=== PATIENT | male | born 1935 | race Caucasian/White ===

== ENCOUNTER 2017-03-20 10:33 | Inpatient (IN) | payer OTHER ==
[~2017-03-20] VITALS: Ht 175.3 cm; Wt 92.2 kg
[2017-03-20 10:50] VITALS: Ht 175.3 cm; Wt 92.2 kg
[2017-03-20 12:40] LABS: CARBON DIOXIDE 26.1 mmol/L (21-32); CHLORIDE SERUM 100 mmol/L (98-107); CREATININE SERUM 0.9 mg/dL (0.7-1.3); GLUCOSE SERUM 171 mg/dL (74-106); POTASSIUM SERUM 3.5 mmol/L (3.5-5.1); SODIUM SERUM 134 mmol/L (136-145)
[2017-03-20 12:50] LABS: RED CELL DISTRIBUTION WIDTH 14.8 % (11.5-14.5)
[2017-03-20 12:51] LABS: ALKALINE PHOSPHATASE 54 U/L (46-116); ALT/SGPT 30 U/L (16-63); AST/SGOT 35 U/L (15-37); BASOPHIL % 0.1 % (0-2); BILIRUBIN TOTAL 0.41 mg/dL (0.20-1.00); PLATELET COUNT 136 x10^3mcL (130-400)
[2017-03-20 12:53] LABS: ALBUMIN 3.1 g/dL (3.4-5.0); TOTAL PROTEIN, SERUM 8.9 g/dL (6.4-8.2)
[2017-03-20 13:04] LABS: T3 TOTAL 0.88 ng/mL
[2017-03-20 13:12] LABS: ERYTHROCYTE SED RATE 90 mm/hr (0-20)
[2017-03-20] MEDS ORDERED: ALLOPURINOL100 MG PO (13:19)
[2017-03-20] MEDS ORDERED: NOR5 PO (13:19)
[2017-03-20] MEDS ORDERED: DITROPAN XL15 MG PO (13:19)
[2017-03-20] MEDS ORDERED: FLOMAX0.4 MG PO (13:20)
[2017-03-20] MEDS ORDERED: COUMADIN5 MG PO (13:20)
[2017-03-20] MEDS ORDERED: FERROUS SULFAT325 M2 PO (13:21)
[2017-03-20] MEDS ORDERED: SIMVASTATIN10 M1 PO (13:21)
[2017-03-20 13:40] LABS: CK-MB 1.5 ng/mL (0-3.6); FREE T4 1.45 ng/dL (0.76-1.46); FREE THYROXINE INDEX 2.6 ug/dL (1.4-4.5); T4(THYROXINE) 7.5 ug/dL (4.7-13.3)
[2017-03-20 14:11] LABS: MAGNESIUM 2.1 mg/dL (1.8-2.4)
[2017-03-20 14:12] LABS: CHOLESTEROL/HDL RATIO 1.4
[2017-03-20 16:19] VITALS: BP 120/60
[2017-03-20 18:01] VITALS: BP 150/70
[2017-03-20 18:47] LABS: UA SPECIFIC GRAVITY >=1.030 (1.005-1.035); microscopic required? YES; urine erythrocyte TRACE (NEGATIVE)
[2017-03-20 18:59] LABS: AMPHETAMINE QUAL UR NONE DETECTED (NEG <=1000)
[2017-03-20 19:40] VITALS: BP 120/72; BP 131/63
[2017-03-21 06:07] VITALS: BP 130/67
[2017-03-21 07:23] LABS: CALCIUM 7.8 mg/dL (8.5-10.1); CARBON DIOXIDE 27.2 mmol/L (21-32); CHLORIDE SERUM 99 mmol/L (98-107); CREATININE SERUM 0.8 mg/dL (0.7-1.3); GLUCOSE SERUM 110 mg/dL (74-106); MAGNESIUM 2.3 mg/dL (1.8-2.4); PHOSPHOROUS 3.4 mg/dL (2.5-4.9); POTASSIUM SERUM 3.7 mmol/L (3.5-5.1); SODIUM SERUM 135 mmol/L (136-145)
[2017-03-21 07:36] LABS: BASOPHIL % 1.6 % (0-2); RED CELL DISTRIBUTION WIDTH 14.1 % (11.5-14.5)
[2017-03-21 07:37] LABS: PLATELET COUNT 127 x10^3mcL (130-400)
[2017-03-21 10:05] VITALS: BP 150/72
[2017-03-21 15:09] VITALS: BP 143/70
[2017-03-21 17:00] VITALS: BP 120/62
[2017-03-21 18:00] VITALS: BP 149/73
[2017-03-21 20:54] VITALS: BP 144/66
[2017-03-22 05:45] VITALS: BP 139/74
[2017-03-22 07:13] LABS: CALCIUM 8.3 mg/dL (8.5-10.1); CARBON DIOXIDE 26.5 mmol/L (21-32); CHLORIDE SERUM 98 mmol/L (98-107); CREATININE SERUM 0.7 mg/dL (0.7-1.3); GLUCOSE SERUM 149 mg/dL (74-106); MAGNESIUM 2.3 mg/dL (1.8-2.4); PHOSPHOROUS 3.8 mg/dL (2.5-4.9); POTASSIUM SERUM 3.7 mmol/L (3.5-5.1); SODIUM SERUM 136 mmol/L (136-145)
[2017-03-22 07:19] LABS: BASOPHIL % 0.2 % (0-2); PLATELET COUNT 131 x10^3mcL (130-400); RED CELL DISTRIBUTION WIDTH 14.4 % (11.5-14.5)
[2017-03-22 09:15] VITALS: BP 105/63
[2017-03-22 13:30] VITALS: BP 123/75
[2017-03-22 17:44] VITALS: BP 174/75
[2017-03-22 19:00] VITALS: BP 157/78
[2017-03-22 21:50] VITALS: BP 151/78
[2017-03-23 05:16] VITALS: BP 143/73
[2017-03-23 06:15] LABS: CALCIUM 8.5 mg/dL (8.5-10.1); CARBON DIOXIDE 30.6 mmol/L (21-32); CHLORIDE SERUM 99 mmol/L (98-107); CREATININE SERUM 0.8 mg/dL (0.7-1.3); GLUCOSE SERUM 144 mg/dL (74-106); MAGNESIUM 2.3 mg/dL (1.8-2.4); PHOSPHOROUS 4.1 mg/dL (2.5-4.9); POTASSIUM SERUM 3.9 mmol/L (3.5-5.1); SODIUM SERUM 136 mmol/L (136-145)
[2017-03-23 06:44] LABS: BASOPHIL % 0 % (0-2); PLATELET COUNT 145 x10^3mcL (130-400); RED CELL DISTRIBUTION WIDTH 14.9 % (11.5-14.5)
[2017-03-23 10:27] VITALS: BP 135/68
[2017-03-23 14:20] VITALS: BP 127/52
[2017-03-23 17:57] VITALS: BP 139/58
[2017-03-23 22:14] VITALS: BP 132/58
[2017-03-24 05:36] VITALS: BP 124/65
[2017-03-24 07:36] LABS: BASOPHIL % 0.2 % (0-2); PLATELET COUNT 142 x10^3mcL (130-400)
[2017-03-24 07:37] LABS: RED CELL DISTRIBUTION WIDTH 14.7 % (11.5-14.5)
[2017-03-24 07:53] LABS: CALCIUM 8.5 mg/dL (8.5-10.1); CHLORIDE SERUM 101 mmol/L (98-107); CREATININE SERUM 0.8 mg/dL (0.7-1.3); GLUCOSE SERUM 130 mg/dL (74-106); MAGNESIUM 2.3 mg/dL (1.8-2.4); PHOSPHOROUS 4.3 mg/dL (2.5-4.9); SODIUM SERUM 137 mmol/L (136-145)
[2017-03-24 10:00] VITALS: BP 150/70
[2017-03-24 12:08] VITALS: BP 139/58
[2017-03-24 16:26] VITALS: BP 139/58
[2017-03-24] MEDS ORDERED: LAC PO (16:48)
[2017-03-24] MEDS ORDERED: LEVOFLOXACIN750 M1 PO (16:48)
[2017-03-24] MEDS ORDERED: CLEOCIN HCL300 MG PO (16:49)
== END 2017-03-24 18:10 | disposition home health service (06) | DRG 177 ==
LOC: ED 10:33 → DU 13:05
PROVIDERS: Family Medicine; Specialist
DX: J69.0 Pneumonitis due to inhalation of food and vomit (principal); J96.01 Acute respiratory failure with hypoxia; N17.0 Acute kidney failure with tubular necrosis; E44.0 Moderate protein-calorie malnutrition; D68.69 Other thrombophilia; E87.1 Hypo-osmolality and hyponatremia; I48.91 Unspecified atrial fibrillation; I16.0 Hypertensive urgency; R80.9 Proteinuria, unspecified; I10 Essential (primary) hypertension; E11.65 Type 2 diabetes mellitus with hyperglycemia; E78.5 Hyperlipidemia, unspecified; N40.0 Benign prostatic hyperplasia without lower urinary tract symptoms; E66.9 Obesity, unspecified; Z68.31 Body mass index [BMI] 31.0-31.9, adult; Z95.0 Presence of cardiac pacemaker; Z79.01 Long term (current) use of anticoagulants
CPT/HCPCS: 36600; 82962; 83880; 84439; 87804; 94150; 97110-GP; 97116-GP; J1644; J1815; J1940; J1956; J2405; J2550; J2920; J3490; J7030; J7613; J7620; J7644; Q0092

== ENCOUNTER 2018-05-16 14:36 | Inpatient (IN) | payer OTHER ==
[~2018-05-16] VITALS: Ht 175.3 cm; Wt 87.0 kg
[~2018-05-16 14:36] MED LIST: ALLOPURINOL100 MG PO; CLEOCIN HCL300 MG PO; COUMADIN5 MG PO; DITROPAN XL15 MG PO; FERROUS SULFAT325 M2 PO; FLOMAX0.4 MG PO; LAC PO; LEVOFLOXACIN750 M1 PO; NOR5 PO; SIMVASTATIN10 M1 PO
[2018-05-16 16:06] LABS: BASOPHIL % 0.5 % (0-2); PLATELET COUNT 154 x10^3mcL (130-400)
[2018-05-16 16:07] LABS: RED CELL DISTRIBUTION WIDTH 15.2 % (11.5-14.5)
[2018-05-16] MEDS ORDERED: NATURAL ZINC50 MG (16:09)
[2018-05-16] MEDS ORDERED: ALENDRONATE SOD70 M2 PO (16:10)
[2018-05-16] MEDS ORDERED: POTASSIUM CHLO10 MEQ PO (16:11)
[2018-05-16] MEDS ORDERED: LISINOPRIL10 MG PO (16:12)
[2018-05-16] MEDS ORDERED: FINASTERIDE5 M1 (16:14)
[2018-05-16] MEDS ORDERED: [UNRECOGNIZED DRUG - CODE] (16:14)
[2018-05-16 16:18] LABS: CALCIUM 8.5 mg/dL (8.5-10.1); CARBON DIOXIDE 29.3 mmol/L (21-32); CHLORIDE SERUM 102 mmol/L (98-107); CREATININE SERUM 1.1 mg/dL (0.7-1.3); GLUCOSE SERUM 122 mg/dL (74-106); POTASSIUM SERUM 5.2 mmol/L (3.5-5.1); SODIUM SERUM 137 mmol/L (136-145)
[2018-05-16 16:24] LABS: ALBUMIN 3.4 g/dL (3.4-5.0); ALKALINE PHOSPHATASE 67 U/L (46-116); ALT/SGPT 34 U/L (16-63); AST/SGOT 27 U/L (15-37); BILIRUBIN TOTAL 0.2 mg/dL (0.20-1.00); HDL CHOLESTEROL 56 mg/dL (40-60); LIPASE 97 IU/L (73-393); TOTAL PROTEIN, SERUM 7.8 g/dL (6.4-8.2); TRIGLYCERIDES 129 mg/dL (<150)
[2018-05-16 16:25] LABS: CHOLESTEROL 103 mg/dL (<200); CHOLESTEROL/HDL RATIO 1.8
[2018-05-16 16:28] LABS: microscopic required? NO
[2018-05-16 16:30] LABS: FREE T4 1.04 ng/dL (0.76-1.46); FREE THYROXINE INDEX 2.8 ug/dL (1.4-4.5); T4(THYROXINE) 7.7 ug/dL (4.7-13.3)
[2018-05-16 16:43] LABS: UA SPECIFIC GRAVITY 1.025 (1.005-1.035); urine erythrocyte NEGATIVE (NEGATIVE)
[2018-05-16 17:45] LABS: T3 TOTAL 0.97 ng/mL
[2018-05-16 18:46] LABS: MAGNESIUM 2.6 mg/dL (1.8-2.4); PHOSPHOROUS 3.4 mg/dL (2.5-4.9)
[2018-05-16 20:22] VITALS: BP 164/80
[2018-05-16 22:51] LABS: CALCIUM 8.6 mg/dL (8.5-10.1); CARBON DIOXIDE 23.4 mmol/L (21-32); CHLORIDE SERUM 105 mmol/L (98-107); CREATININE SERUM 0.8 mg/dL (0.7-1.3); GLUCOSE SERUM 102 mg/dL (74-106); MAGNESIUM 2.4 mg/dL (1.8-2.4); PHOSPHOROUS 3.6 mg/dL (2.5-4.9); POTASSIUM SERUM 4.6 mmol/L (3.5-5.1); SODIUM SERUM 140 mmol/L (136-145)
[2018-05-16 23:46] VITALS: BP 148/63
[2018-05-17 03:38] VITALS: BP 135/61
[2018-05-17 05:31] LABS: PLATELET COUNT 132 x10^3mcL (130-400)
[2018-05-17 05:34] LABS: RED CELL DISTRIBUTION WIDTH 14.7 % (11.5-14.5)
[2018-05-17 05:36] LABS: CALCIUM 8.2 mg/dL (8.5-10.1); CARBON DIOXIDE 24.9 mmol/L (21-32); CHLORIDE SERUM 108 mmol/L (98-107); CREATININE SERUM 0.8 mg/dL (0.7-1.3); GLUCOSE SERUM 96 mg/dL (74-106); MAGNESIUM 2.3 mg/dL (1.8-2.4); PHOSPHOROUS 3.4 mg/dL (2.5-4.9); POTASSIUM SERUM 4.6 mmol/L (3.5-5.1); SODIUM SERUM 141 mmol/L (136-145)
[2018-05-17 07:30] VITALS: BP 103/48
[2018-05-17 11:12] VITALS: BP 134/57
[2018-05-17 16:00] VITALS: BP 114/51
[2018-05-17 19:46] VITALS: BP 148/74
[2018-05-17 23:15] VITALS: BP 140/73
[2018-05-18 03:28] VITALS: BP 130/65
[2018-05-18 08:00] VITALS: BP 136/82
[2018-05-18 08:21] VITALS: Ht 175.3 cm; Wt 87.0 kg
[2018-05-18 11:15] VITALS: BP 133/67
== END 2018-05-18 13:23 | disposition home or self-care (01) | DRG 242 ==
LOC: ED 14:36 → IC 17:46
PROVIDERS: Internal Medicine Clinical Cardiac Electrophysiology; Specialist; ADMIT Internal Medicine
PROC: 0JH604Z Insertion of Pacemaker, Single Chamber into Chest Subcutaneous Tissue and Fascia, Open Approach (ICD-10-PCS; 2018-05-17)
PROC: 0JPT0PZ Removal of Cardiac Rhythm Related Device from Trunk Subcutaneous Tissue and Fascia, Open Approach (ICD-10-PCS; 2018-05-17)
PROC: 02HK3JZ Insertion of Pacemaker Lead into Right Ventricle, Percutaneous Approach (ICD-10-PCS; principal; 2018-05-17 18:30)
DX: T82.110A Breakdown (mechanical) of cardiac electrode, initial encounter (principal); N17.0 Acute kidney failure with tubular necrosis; I44.2 Atrioventricular block, complete; T82.111A Breakdown (mechanical) of cardiac pulse generator (battery), initial encounter; I48.2 Chronic atrial fibrillation; R00.1 Bradycardia, unspecified; I10 Essential (primary) hypertension; E87.5 Hyperkalemia; J44.9 Chronic obstructive pulmonary disease, unspecified; N40.0 Benign prostatic hyperplasia without lower urinary tract symptoms; M10.9 Gout, unspecified; E83.41 Hypermagnesemia; E78.5 Hyperlipidemia, unspecified; Z95.0 Presence of cardiac pacemaker; Z68.28 Body mass index [BMI] 28.0-28.9, adult; Z79.01 Long term (current) use of anticoagulants; Y71.2 Prosthetic and other implants, materials and accessory cardiovascular devices associated with adverse incidents; Y92.009 Unspecified place in unspecified non-institutional (private) residence as the place of occurrence of the external cause
CPT/HCPCS: 83880; 84439; C1786; J0690; J2001; J2250; J2270; J3010; J7030; J7040; J7120; Q0092; Q9967

== ENCOUNTER 2019-03-08 17:29 | Inpatient (IN) | payer OTHER ==
[~2019-03-08] VITALS: Ht 165.1 cm; Wt 84.9 kg
[~2019-03-08 17:29] MED LIST changes: +ALENDRONATE SOD70 M2 PO; -ALLOPURINOL100 MG PO; -COUMADIN5 MG PO; -FERROUS SULFAT325 M2 PO; -FLOMAX0.4 MG PO; -SIMVASTATIN10 M1 PO
[2019-03-08 18:14] VITALS: Ht 165.1 cm; Wt 84.9 kg
[2019-03-08 19:07] LABS: BASOPHIL % 0.6 % (0-2); PLATELET COUNT 138 x10^3mcL (130-400)
[2019-03-08 19:11] LABS: RED CELL DISTRIBUTION WIDTH 14.8 % (11.5-14.5)
[2019-03-08 19:22] LABS: CALCIUM 8.5 mg/dL (8.5-10.1); CARBON DIOXIDE 28.9 mmol/L (21-32); CHLORIDE SERUM 105 mmol/L (98-107); GLUCOSE SERUM 100 mg/dL (74-106); POTASSIUM SERUM 4.4 mmol/L (3.5-5.1); SODIUM SERUM 140 mmol/L (136-145)
[2019-03-08 19:30] LABS: UA SPECIFIC GRAVITY 1.025 (1.005-1.035); microscopic required? YES; urine erythrocyte NEGATIVE (NEGATIVE)
[2019-03-08 19:38] LABS: ALBUMIN 3.5 g/dL (3.4-5.0); ALKALINE PHOSPHATASE 80 U/L (46-116); ALT/SGPT 31 U/L (16-63); AST/SGOT 23 U/L (15-37); BILIRUBIN TOTAL 0.3 mg/dL (0.20-1.00); HDL CHOLESTEROL 55 mg/dL (40-60); LIPASE 134 IU/L (73-393); T4(THYROXINE) 7.5 ug/dL (4.7-13.3); TOTAL PROTEIN, SERUM 7.9 g/dL (6.4-8.2)
[2019-03-08 19:42] LABS: CHOLESTEROL 94 mg/dL (<200)
[2019-03-08 21:54] VITALS: BP 151/58
[2019-03-08] MEDS ORDERED: POTASSIUM CHLO10 MEQ PO (21:58)
[2019-03-08] MEDS ORDERED: ZESTRIL20 MG (21:58)
[2019-03-08] MEDS ORDERED: ALLOPURINOL100 MG PO (21:58)
[2019-03-08] MEDS ORDERED: SIMVASTATIN10 M1 PO (21:58)
[2019-03-08] MEDS ORDERED: ELIQUIS5 MG PO (21:59)
[2019-03-09 04:58] VITALS: BP 137/61
[2019-03-09 06:52] LABS: CALCIUM 8.3 mg/dL (8.5-10.1); CARBON DIOXIDE 27.1 mmol/L (21-32); CHLORIDE SERUM 102 mmol/L (98-107); GLUCOSE SERUM 168 mg/dL (74-106); MAGNESIUM 2.1 mg/dL (1.8-2.4); PHOSPHOROUS 3.4 mg/dL (2.5-4.9); SODIUM SERUM 138 mmol/L (136-145)
[2019-03-09 07:37] LABS: BASOPHIL % 0 % (0-2); PLATELET COUNT 121 x10^3mcL (130-400); RED CELL DISTRIBUTION WIDTH 14.7 % (11.5-14.5)
[2019-03-09 08:39] VITALS: BP 144/61
[2019-03-09 11:49] VITALS: BP 127/60
[2019-03-09 16:05] VITALS: BP 140/66
[2019-03-09 20:40] VITALS: BP 137/52
[2019-03-10 05:54] VITALS: BP 122/57
[2019-03-10 06:52] LABS: CALCIUM 8.1 mg/dL (8.5-10.1); CARBON DIOXIDE 32.4 mmol/L (21-32); CHLORIDE SERUM 102 mmol/L (98-107); CREATININE SERUM 0.9 mg/dL (0.7-1.3); GLUCOSE SERUM 106 mg/dL (74-106); PHOSPHOROUS 3.7 mg/dL (2.5-4.9); POTASSIUM SERUM 3.8 mmol/L (3.5-5.1); SODIUM SERUM 141 mmol/L (136-145)
[2019-03-10 07:15] LABS: BASOPHIL % 0.1 % (0-2); PLATELET COUNT 135 x10^3mcL (130-400); RED CELL DISTRIBUTION WIDTH 14.4 % (11.5-14.5)
[2019-03-10 08:26] VITALS: BP 118/54
[2019-03-10 12:42] VITALS: BP 132/67
[2019-03-10 16:11] VITALS: BP 126/60
[2019-03-10 20:48] VITALS: BP 110/42
[2019-03-11 01:00] VITALS: BP 110/42
[2019-03-11 05:31] VITALS: BP 131/69
[2019-03-11 08:29] LABS: PLATELET COUNT 170 x10^3mcL (130-400); RED CELL DISTRIBUTION WIDTH 14.4 % (11.5-14.5)
[2019-03-11 08:39] VITALS: BP 135/78
[2019-03-11] MEDS ORDERED: LASIX40 MG PO ×2 (09:56→11:07)
[2019-03-11] MEDS ORDERED: ZESTRIL20 MG PO (09:56)
[2019-03-11 09:58] LABS: CALCIUM 8.4 mg/dL (8.5-10.1); CARBON DIOXIDE 31.2 mmol/L (21-32); CHLORIDE SERUM 99 mmol/L (98-107); CREATININE SERUM 0.9 mg/dL (0.7-1.3); GLUCOSE SERUM 92 mg/dL (74-106); POTASSIUM SERUM 3.7 mmol/L (3.5-5.1); SODIUM SERUM 137 mmol/L (136-145)
[2019-03-11 11:02] VITALS: BP 135/78
[2019-03-11 11:05] LABS: BAND NEUTROPHIL 0 % (0-10); BASOPHIL 0 % (0-2); MONOCYTE 5 % (0-7); SEGMENTED NEUTROPHILS 86 % (37-75)
[2019-03-11 11:06] LABS: rbc morphology (normal/abnorm) ABNORMAL (NORMAL)
[2019-03-11] MEDS ORDERED: SIMVASTATIN10 M1 PO (11:07)
[2019-03-11] MEDS ORDERED: FERROUS SULFAT325 M2 PO (11:07)
[2019-03-11] MEDS ORDERED: COUMADIN5 MG PO (11:08)
[2019-03-11] MEDS ORDERED: FLOMAX0.4 MG PO (11:08)
[2019-03-11] MEDS ORDERED: ALLOPURINOL100 MG PO (11:09)
[2019-03-11] MEDS ORDERED: FINASTERIDE5 M1 (11:09)
[2019-03-11] MEDS ORDERED: LISINOPRIL10 MG PO (11:10)
[2019-03-11] MEDS ORDERED: [UNRECOGNIZED DRUG - CODE] (11:10)
[2019-03-11] MEDS ORDERED: NATURAL ZINC50 MG (11:11)
[2019-03-11] MEDS ORDERED: POTASSIUM CHLO10 MEQ PO (11:11)
== END 2019-03-11 11:59 | disposition home or self-care (01) | DRG 291 ==
LOC: ED 17:29 → DU 20:38
PROVIDERS: Emergency Medicine; ADMIT General Practice
DX: I11.0 Hypertensive heart disease with heart failure (principal); J96.00 Acute respiratory failure, unspecified whether with hypoxia or hypercapnia; I50.43 Acute on chronic combined systolic (congestive) and diastolic (congestive) heart failure; I35.0 Nonrheumatic aortic (valve) stenosis; I42.9 Cardiomyopathy, unspecified; I27.20 Pulmonary hypertension, unspecified; I48.91 Unspecified atrial fibrillation; I34.0 Nonrheumatic mitral (valve) insufficiency; I36.1 Nonrheumatic tricuspid (valve) insufficiency; I87.8 Other specified disorders of veins; H91.93 Unspecified hearing loss, bilateral; M10.9 Gout, unspecified; E78.5 Hyperlipidemia, unspecified; N40.0 Benign prostatic hyperplasia without lower urinary tract symptoms; Z95.0 Presence of cardiac pacemaker; Z79.01 Long term (current) use of anticoagulants; Z68.27 Body mass index [BMI] 27.0-27.9, adult
CPT/HCPCS: 36600; 83880; 87804; 94150; G0378; J0456; J0696; J1940; J2930; J7030; J7613; J7626; J7644; Q0092